=== PATIENT | female | born 1965 | race Asian ===

== ENCOUNTER 2017-09-05 19:07 | Emergency (ER) | payer MEDICAID ==
[~2017-09-05] VITALS: Ht 157.5 cm; Wt 55.8 kg
[2017-09-05 20:45] VITALS: BP 123/86
[2017-09-05 22:18] LABS: INR 0.92 (0.9-1.15); Partial Thromboplastin Time 27.3 sec (22.64-33.71)
== END 2017-09-05 23:25 | disposition home or self-care (01) ==
LOC: ER 19:07
DX: H11.31 Conjunctival hemorrhage, right eye (principal)
CPT/HCPCS: 36415; 85610; 85730

== ENCOUNTER 2023-02-23 09:34 | Day surgery (SDC) | payer MEDICAID ==
[2023-02-22 09:54] LABS: Basophils # (auto) 0 10 ^3/uL (0-0.2); Basophils % (auto) 0.6 % (0.0-2.0); Eosinophils # (auto) 0.1 10 ^3/uL (0-0.8); Eosinophils % (auto) 2.2 % (0.0-7.0); Hematocrit 42.4 % (36.0-46.0); Lymphocytes % (auto) 45.9 % (10.0-50.0); Mean Corpuscular Hemoglobin 29.9 pg (28.0-32.0); Mean Corpuscular Volume 90.8 fL (80.0-100.0); Monocytes # (auto) 0.3 10 ^3/uL (0-1.3); Neutrophils % (auto) 46.3 % (37.0-80.0); Red Blood Cells 4.67 10^6/uL (4.0-5.20); White Blood Cell 6.5 10^3/uL (4.4-10.8)
[2023-02-22 10:08] LABS: INR 0.97 (0.9-1.15); Partial Thromboplastin Time 29.6 SEC (24.5-34.5); Prothrombin Time 10.2 sec (9.3-11.8)
[2023-02-22 11:16] LABS: Alanine Aminotransferase 19 U/L (7-40); Alkaline Phosphatase 84 U/L (46-116); Anion Gap 5.6 (5-15); BUN/Creatinine Ratio 22.2 (10.0-20.0); Blood Urea Nitrogen 14 mg/dL (9-23); Calcium 9.8 mg/dL (8.5-10.1); Carbon Dioxide 29.4 mmol/L (20-30); Chloride 106 mmol/L (98-107); Glucose 94 mg/dL (74-106); Potassium 3.8 mmol/L (3.5-5.1); Sodium 141 mmol/L (136-145)
[2023-02-22 11:18] LABS: Albumin 4.7 g/dL (3.2-4.8); Aspartate Aminotransferase 13 U/L (13-40); Bilirubin, Total 0.8 mg/dL (0.2-1.0)
[~2023-02-23] VITALS: Ht 157.5 cm; Wt 53.1 kg
[2023-02-23] MEDS ORDERED: NALOXONE HCL 0.4 MG/ML VIAL ONE (09:42)
[2023-02-23] MEDS ORDERED: SODIUM CHLORIDE LOCK 10 ML ONE (09:42)
[2023-02-23] MEDS ORDERED: FLUMAZENIL 0.1 MG/ML INJ 10ML MDV IV ONE (09:42)
[2023-02-23 10:40] VITALS: O2SAT 100
[2023-02-23] MEDS: diphenhdrAMINE HCL 50 MG/1 ML VL ONE ×2 (10:45→10:47)
[2023-02-23] MEDS: MIDAZOLAM HCL 5 MG/ML-1ML VIAL ONE ×3 (10:45→10:53)
[2023-02-23] MEDS: fentaNYL CITRATE 100 MCG/2 ML VL ONE ×3 (10:45→10:51)
[2023-02-23 11:10] VITALS: RESP 15; TEMP 98.8; O2SAT 100
[2023-02-23 11:59] VITALS: BP 108/62; PULSE 73; RESP 13; O2SAT 99
== END 2023-02-23 12:10 | disposition home or self-care (01) ==
LOC: GI 09:34
PROVIDERS: ATTEND Internal Medicine Gastroenterology
DX: Z12.11 Encounter for screening for malignant neoplasm of colon (principal); K57.30 Diverticulosis of large intestine without perforation or abscess without bleeding; K63.5 Polyp of colon; K64.4 Residual hemorrhoidal skin tags; K64.0 First degree hemorrhoids
CPT/HCPCS: 36415; 45380; 80053; 85025; 85610; 85730; J1200; J2250; J3010; J7030